=== PATIENT | female | born 1980 | race Caucasian/White ===

== ENCOUNTER → 2019-05-18 | Outpatient (CLI) | payer OTHER ==
--- NOTE | 2019-05-18 12:00 | CT ---
EXAMINATION TYPE: CT angio neck DATE OF EXAM: 05/18/2019 HISTORY: Syncopal episodes. COMPARISON: NONE CT DLP: 406.1 mGycm. Automated Exposure Control for Dose Reduction was Utilized. TECHNIQUE: CTA scan of the neck is performed with IV Contrast, patient injected with 65 mL of Isovue 370, axial images are obtained, coronal and sagittal reformatted images are reviewed. Three-D recons tructed images are created on an independent workstation and reviewed. FINDINGS: Carotid/Vascular Structures: Normal three-vessel origin from the arch. No significant plaque or steno sis. No significant plaque or stenosis in the right common or internal carotid artery including a lev el right carotid bulb. No significant plaque or stenosis in the left common or internal carotid arter y including at level of carotid bulb. There are patent bilateral external carotid arteries without si gnificant plaque or stenosis. There is codominant vertebrobasilar system. Vertebral arteries are patent to basilar junction without significant stenosis. Other: The nasal septum is deviated to right of midline. Reversal of normal cervical curvature. IMPRESSION: No significant stenosis in common or internal carotid arteries bilaterally.
== END | disposition home or self-care (01) ==
LOC: RADCTMAIN 10:41
PROVIDERS: ATTEND Psychiatry & Neurology Neurology
DX: R55 Syncope and collapse (principal)
CPT/HCPCS: 70498; Q9967